=== PATIENT | male | born 1975 | race American Indian/Alaskan Native ===

== ENCOUNTER 2020-09-24 01:07 | Inpatient (IN) | payer MEDICARE ==
[2020-09-24] MEDS ORDERED: ACETAMINOPHEN 325 MG TAB PO ONE (02:37)
--- NOTE | 2020-09-24 02:59 | XRay Report ---
CHEST 2 VIEWS INDICATION / CLINICAL INFORMATION: cough. COMPARISON: None available. FINDINGS: SUPPORT DEVICES: None. HEART / MEDIASTINUM: No significant abnormality. LUNGS / PLEURA: There is mild bilateral interstitial prominence. No focal pulmonary consolidation. No pleural effusion. No pneumothorax. ADDITIONAL FINDINGS: No significant additional findings. IMPRESSION: 1. Mild bilateral interstitial prominence, nonspecific but may reflect edema versus atypical infectio n. Signer Name: Kirti Boone MD Signed: 09/24/2020 2:55 AM Workstation Name: [email or web address]
[2020-09-24 03:27] LABS: Basophils % (Auto) 0.3 % (0.0-1.8); Eosinophils % (Auto) 0.1 % (0.0-4.3); Lymphocytes % (Auto) 14.7 % (13.4-35.0); Mean Corpuscular HGB Conc 36 % (32-34); Mean Corpuscular Volume 95 fl (84-94); Monocytes # (Auto) 0.7 K/mm3 (0.0-0.8); Monocytes % (Auto) 9.7 % (0.0-7.3); Platelet Count 179 K/mm3 (140-440); Red Blood Count 3.78 M/mm3 (3.65-5.03)
[2020-09-24] MEDS ORDERED: ACETAMINOPHEN 500 MG TAB PO ONE (03:40)
[2020-09-24] MEDS ORDERED: cefTRIAXone/NS 1 GM/50 ML 1 GM/50 ML BAG IV ONE (03:40)
[2020-09-24] MEDS ORDERED: SODIUM CHLORIDE 0.9% 1000 ML 1,000 ML IV ONE ×2 (03:40→06:09)
[2020-09-24 03:45] LABS: BUN/Creatinine Ratio 11; Blood Urea Nitrogen 12 mg/dL (9-20); Calcium 9.3 mg/dL (8.4-10.2); Hematocrit 35.9 % (35.5-45.6); Hemolysis Index 4
--- NOTE | 2020-09-24 05:11 | Emergency Department Report ---
ED General Adult HPI - General Chief complaint: Fever Stated complaint: COUGH Time Seen by Provider: 09/24/20 03:34 Source: patient Mode of arrival: Ambulatory Limitations: No Limitations - History of Present Illness Initial comments: Patient is a 45-year-old male who presents for cough and fever x6 days. Patient states he was inpatient at [facility] for alcohol rehab. States he had spiked fever today so he was sent to ED by nursing staff at [facility]. Patient denies shortness of breath no, no chest pain, no dizziness or lightheadedness. He describes co ugh as nonproductive. T-max is 102. Patient denies activity intolerance he is tolerating p.o. intake without nausea vomiting. Severity scale (0 -10): 3 - Related Data Allergies Allergy/AdvReac Type Severity Reaction Status Date / Time No Known Allergies Allergy Unverified 09/24/20 02:25 ED Review of Systems ROS: Stated complaint: COUGH Other details as noted in HPI Constitutional: malaise. denies: chills, fever Eyes: denies: eye pain, eye discharge, vision change ENT: hearing loss, congestion. denies: ear pain, throat pain Respiratory: denies: cough, shortness of breath, wheezing Cardiovascular: denies: chest pain, palpitations Endocrine: no symptoms reported Gastrointestinal: denies: abdominal pain, nausea, vomiting, diarrhea Genitourinary: denies: urgency, dysuria Musculoskeletal: denies: back pain, joint swelling, arthralgia Skin: denies: rash, lesions Neurological: denies: headache, weakness, paresthesias Psychiatric: denies: anxiety, depression Hematological/Lymphatic: denies: easy bleeding, easy bruising ED Past Medical Hx - Past Medical History Previous Medical History?: No Hx Psychiatric Treatment: Yes (Depression, Anxiety) - Surgical History Past Surgical History?: No - Social History Smoking Status: Current Every Day Smoker Substance Use Type: None ED Physical Exam - General Limitations: No Limitations General appearance: alert, in no apparent distress - Head Head exam: Present: atraumatic, normocephalic - Eye Eye exam: Present: normal appearance, EOMI - ENT ENT exam: Present: mucous membranes moist - Neck Neck exam: Present: normal inspection - Respiratory Respiratory exam: Present: normal lung sounds bilaterally, chest wall tenderness (Right anterior chest wall tender no crepit no ecchymosis , no seeeeeeeeeeeeeeeeeeeep). Absent: respiratory distress, wheezes, rales, stridor, prolonged expiratory - Cardiovascular Cardiovascular Exam: Present: regular rate, normal heart sounds - GI/Abdominal GI/Abdominal exam: Present: soft, normal bowel sounds. Absent: distended, tenderness, rigid, bruit, pulsatile mass - Rectal Rectal exam: Present: normal inspection - exam: Present: normal inspection - Extremities Exam Extremities exam: Present: normal inspection, full ROM. Absent: tenderness - Back Exam Back exam: Present: normal inspection, full ROM, muscle spasm. Absent: tenderness, CVA tenderness (R), CVA tenderness (L), vertebral tenderness - Neurological Exam Neurological exam: Present: alert, oriented X3, CN II-XII intact. Absent: normal gait - Psychiatric Psychiatric exam: Present: normal affect, normal mood - Skin Skin exam: Present: dry, intact, normal color, erythema (pilonidal abscess 2x3 cm , flucuant, erythema,no drainage, ) ED Course Vital Signs 09/24/20 02:26 Temperature 102.1 F H Pulse Rate 95 H Respiratory 18 Rate Blood Pressure 127/64 O2 Sat by Pulse 96 Oximetry ED Medical Decision Making - Lab Data Result diagrams: 09/24/20 02:40 09/24/20 06:10 Labs 09/24/20 09/24/20 09/24/20 02:40 02:40 03:54 WBC 6.8 RBC 3.78 Hgb 13.0 Hct 35.9 MCV 95 H MCH 34 H MCHC 36 H RDW 13.0 L Plt Count 179 Lymph % (Auto) 14.7 [place] % (Auto) 9.7 H Eos % (Auto) 0.1 Baso % (Auto) 0.3 Lymph # (Auto) 1.0 L [place] # (Auto) 0.7 Eos # (Auto) 0.0 Baso # (Auto) 0.0 Seg Neutrophils % 75.2 H Seg Neutrophils # 5.1 PT INR APTT D-Dimer Sodium 138 Potassium 4.2 Chloride 99.6 Carbon Dioxide 26 Anion Gap 17 BUN 12 Creatinine 1.1 Estimated GFR > 60 BUN/Creatinine Ratio 11 Glucose 102 H Lactic Acid 1.70 Calcium 9.3 09/24/20 03:54 WBC RBC Hgb Hct MCV MCH MCHC RDW Plt Count Lymph % (Auto) [place] % (Auto) Eos % (Auto) Baso % (Auto) Lymph # (Auto) [place] # (Auto) Eos # (Auto) Baso # (Auto) Seg Neutrophils % Seg Neutrophils # PT 13.7 INR 1.07 APTT 31.4 D-Dimer 271.86 H Sodium Potassium Chloride Carbon Dioxide Anion Gap BUN Creatinine Estimated GFR BUN/Creatinine Ratio Glucose Lactic Acid Calcium Labs 09/24/20 09/24/20 09/24/20 02:40 02:40 03:54 WBC 6.8 RBC 3.78 Hgb 13.0 Hct 35.9 MCV 95 H MCH 34 H MCHC 36 H RDW 13.0 L Plt Count 179 Lymph % (Auto) 14.7 [place] % (Auto) 9.7 H Eos % (Auto) 0.1 Baso % (Auto) 0.3 Lymph # (Auto) 1.0 L [place] # (Auto) 0.7 Eos # (Auto) 0.0 Baso # (Auto) 0.0 Seg Neutrophils % 75.2 H Seg Neutrophils # 5.1 PT INR APTT D-Dimer Sodium 138 Potassium 4.2 Chloride 99.6 Carbon Dioxide 26 Anion Gap 17 BUN 12 Creatinine 1.1 Estimated GFR > 60 BUN/Creatinine Ratio 11 Glucose 102 H Lactic Acid 1.70 Calcium 9.3 Ferritin Total Bilirubin Direct Bilirubin Indirect Bilirubin AST ALT Alkaline Phosphatase Lactate Dehydrogenase C-Reactive Protein Total Protein Albumin Albumin/Globulin Ratio 09/24/20 09/24/20 09/24/20 03:54 03:54 06:10 WBC RBC Hgb Hct MCV MCH MCHC RDW Plt Count Lymph % (Auto) [place] % (Auto) Eos % (Auto) Baso % (Auto) Lymph # (Auto) [place] # (Auto) Eos # (Auto) Baso # (Auto) Seg Neutrophils % Seg Neutrophils # PT 13.7 INR 1.07 APTT 31.4 D-Dimer 271.86 H 490.64 H Sodium Potassium Chloride Carbon Dioxide Anion Gap BUN Creatinine Estimated GFR BUN/Creatinine Ratio Glucose Lactic Acid Calcium Ferritin Total Bilirubin 0.40 Direct Bilirubin < 0.2 Indirect Bilirubin 0.2 AST 32 ALT 26 Alkaline Phosphatase 50 Lactate Dehydrogenase C-Reactive Protein Total Protein 6.9 Albumin 3.7 L Albumin/Globulin Ratio 1.2 09/24/20 09/24/20 06:10 06:10 WBC RBC Hgb Hct MCV MCH MCHC RDW Plt Count Lymph % (Auto) [place] % (Auto) Eos % (Auto) Baso % (Auto) Lymph # (Auto) [place] # (Auto) Eos # (Auto) Baso # (Auto) Seg Neutrophils % Seg Neutrophils # PT INR APTT D-Dimer Sodium Potassium Chloride Carbon Dioxide Anion Gap BUN Creatinine Estimated GFR BUN/Creatinine Ratio Glucose 111 H Lactic Acid Calcium Ferritin 565.5 H Total Bilirubin Direct Bilirubin Indirect Bilirubin AST ALT Alkaline Phosphatase Lactate Dehydrogenase 366 H C-Reactive Protein 4.10 H Total Protein Albumin Albumin/Globulin Ratio - Radiology Data Radiology results: report reviewed, image reviewed Findings Reporting MD: Kirti Boone Dictation Time: September 24, 2020 01:55 Beating Machine Operator: Not available Group President Date: CHEST 2 VIEWS INDICATION / CLINICAL INFORMATION: cough. COMPARISON: None available. FINDINGS: SUPPORT DEVICES: None. HEART / MEDIASTINUM: No significant abnormality. LUNGS / PLEURA: There is mild bilateral interstitial prominence. No focal pulmonary consolidation. No pleural effusion. No pneumothorax. ADDITIONAL FINDINGS: No significant additional findings. IMPRESSION: 1.Findings Reporting MD: Kirti Boone Dictation Time: September 24, 2020 01:55 Beating Machine Operator: Not available Group President Date: CHEST 2 VIEWS INDICATION / CLINICAL INFORMATION: cough. COMPARISON: None available. FINDINGS: SUPPORT DEVICES: None. HEART / MEDIASTINUM: No significant abnormality. LUNGS / PLEURA: There is mild bilateral interstitial prominence. No focal pulmonary consolidation. No pleural effusion. No pneumothorax. ADDITIONAL FINDINGS: No significant additional findings. IMPRESSION: 1. Mild bilateral interstitial prominence, nonspecific but may reflect edema versus atypical infection. Signer Name: Kirti Boone MD Signed: 09/24/2020 1:55 AM Workstation Name: [email or web address] Signer Name: Kirti Boone MD Signed: 09/24/2020 1:55 AM Workstation Name: [email or web address] - Medical Decision Making [id number]: Cxr: Mild bilateral interstitial prominence, nonspecific but may reflect edema versus atypical infection. lactic Acid; 1.7, temp: 102.7, D Dimer 271, CTA pending, COVID PCR: pending, Symptoms are improved with medications given in ed, Consulted ED Attending recommendation: Admit to Hospitalist Dx: PUI / COVID 19 Exposure, Discussed same with patient , patient agrees with treatment plan. Hospitalist consulted at this time. CTA: pending D-Dimer: 450 EKG: NSR No STEMI interp by ed attending. Plan: Admit to hospitalist DX: PUI, Pneumonia bilat Lobe, COVID Exposure, Consulted Hospitalist, recommendation Rocephin, azithromycin, admit to medicine. Critical care attestation.: If time is entered above; I have spent that time in minutes in the direct care of this critically ill patient, excluding procedure time. ED Disposition Clinical Impression: Fever with exposure to COVID-19 virus, Person under investigation for COVID-19 Pneumonia Qualifiers: Pneumonia type: due to unspecified organism Laterality: bilateral Lung location: lower lobe of lung Qualified Code(s): J18.9 - Pneumonia, unspecified organism Disposition: OP ADMIT IP TO THIS HOSP Is pt being admited?: Yes Does the pt Need Aspirin: No Condition: Stable Instructions: Bacterial Pneumonia (ED) Time of Disposition: 06:58
[2020-09-24 05:13] LABS: INR 1.07 (0.87-1.13)
[2020-09-24 05:14] LABS: Partial Thromboplastin Time 31.4 Sec. (24.2-36.6)
[2020-09-24 05:22] LABS: Alanine Aminotransferase 26 units/L (7-56); Albumin 3.7 g/dL (3.9-5)
[2020-09-24 05:26] LABS: Bilirubin,Direct < 0.2 mg/dL (0-0.2)
[2020-09-24 06:33] LABS: C-Reactive Protein 4.1 mg/dL (0.00-1.30)
--- NOTE | 2020-09-24 06:49 | Cat Scan Report ---
CTA CHEST WITH IV CONTRAST INDICATION / CLINICAL INFORMATION: Pt complains of cough, fever. Elevated D-dimer. PUI. TECHNIQUE: Axial CT images were obtained through the chest after injection of 100 mL Omnipaque 350 IV contrast. 3 plane MIP and/or 3D reconstructions were produced. All CT scans at this location are performed usin g CT dose reduction for ALARA by means of automated exposure control. COMPARISON: Chest radiograph same day FINDINGS: PULMONARY ARTERIES: No pulmonary emboli. THORACIC AORTA: No significant abnormality. HEART: No significant abnormality. CORONARY ARTERIES: No significant calcification. PLEURA: No pleural effusion. No pneumothorax. LYMPH NODES: Multiple mildly prominent mediastinal lymph nodes, nonspecific and likely reactive. LUNGS: There are bilateral peripheral groundglass opacities seen throughout both lungs. ADDITIONAL FINDINGS: None. UPPER ABDOMEN: No acute findings. SKELETAL STRUCTURES: No significant osseous abnormality. IMPRESSION: 1. No CT evidence for pulmonary embolism. 2. Bilateral peripheral groundglass opacities seen throughout both lungs, worrisome for atypical or v iral infection. Signer Name: Kirti Boone MD Signed: 09/24/2020 6:44 AM Workstation Name: [id number]
[2020-09-24] MEDS ORDERED: SODIUM CHLORIDE 0.9% 1000 ML 1,000 ML IV SCH (07:00)
--- NOTE | 2020-09-24 08:01 | History and Physical Report ---
<TARI JADE - Last Filed: 09/24/20 11:54> History of Present Illness Date of examination: 09/24/20 Chief complaint: Cough, shortness of breath, fever History of present illness: This is a 45-year-old male who has depression, anxiety, bipolar, tobacco abuse (half a pack per day since he was a teenager) who presented to the emergency department with a 5-8 day history of shortness of breath, dyspnea and dry cough, loss of taste/smell for 3 days (patient has recovered) and one episode of fever (100.5). Patient is from [facility] and he says he was admitted for depression however he told the emergency department physician that he was admitted for alcohol rehab. Patient denies any alcohol use at the time of examination. Patient denies any chest pain, chills, hemoptysis, excessive fatigue, or recent weight loss. Patient does endorse a dry cough, fever, recent sick contacts and COVID-19 exposure from care home. In the emergency department patient was started on a azithromycin, ceftriaxone, received 2 L IV fluid, chest CTA for elevated D-dimer which revealed no pulmonary embolism and a chest x-ray which showed mild bilateral interstitial prominence measuring reflect edema or atypical infection. His inflammatory markers are elevated however he is procalcitonin is less than 0.05. Patient will be admitted to the hospitalist group as a COVID-19 PUI, infectious disease, pulmonology and mental health have been consulted. No home medications to rec oncile however RN instructed to update as soon as possible, advanced care planning conducted in the emergency department and no prior visits to review. Patient denies any suicidal homicidal ideations at the time of my exam. Past History Past Medical History: other (Bipolar, anxiety, depression) Past Surgical History: No surgical history Social history: , Lives alone, smoking, full code. denies: alcohol abuse, prescription drug abuse, IV drug use Family history: CAD, diabetes Medications and Allergies Allergies Allergy/AdvReac Type Severity Reaction Status Date / Time No Known Allergies Allergy Unverified 09/24/20 02:25 Home Medications Medication Instructions Recorded Confirmed Last Taken Type No Known Home Medications [No 09/24/20 09/24/20 Unknown History Reported Home Medications] Active Meds: Active Medications Acetaminophen (Acetaminophen 325 Mg Tab) 650 mg PO Q4H PRN PRN Reason: Pain MILD(1-3)/Fever >100.5/[facility] Heparin Sodium (Porcine) (Heparin 5,000 Unit/1 Ml Vial) 7,500 unit SUB-Q Q8HR [facility] Sodium Chloride (Nacl 0.9% 1000 Ml) 1,000 mls @ 125 mls/hr IV ONCE ONE Stop: 09/24/20 14:08 Last Admin: 09/24/20 06:35 Dose: 125 mls/hr Documented by: Azithromycin 500 mg/ Sodium (Chloride) 250 mls @ 250 mls/hr IV Q24HR [facility]EN[facility]; Ingrid col Lorazepam (Lorazepam 2 Mg Tab) 2 mg PO Q1HR PRN PRN Reason: CIWA-Ar 8-15 Lorazepam (Lorazepam 2 Mg Tab) 4 mg PO Q1HR PRN PRN Reason: CIWA-Ar 16-25 Ondansetron HCl (Ondansetron 4 Mg/2 Ml Inj) 4 mg IV Q8H PRN PRN Reason: Nausea And Vomiting Oxycodone/Acetaminophen (Oxycodone /Acetaminophen 5-325mg Tab) 1 tab PO Q6H PRN PRN Reason: Pain, Moderate (4-6) Sodium Chloride (Sodium Chloride 0.9% 10 Ml Flush Syringe) 10 ml IV BID [facility] Sodium Chloride (Sodium Chloride 0.9% 10 Ml Flush Syringe) 10 ml IV PRN PRN PRN Reason: LINE FLUSH Review of Systems Constitutional: fever, no weight loss, no weight gain, no chills, no sweats, no night sweats, no anorexia, no fatigue, no weakness, no malaise, no lethargy, no chronic headaches, no chronic pain Ears, nose, mouth and throat: no ear pain, no ear discharge, no tinnitis, no d ecreased hearing, no nose pain, no nasal congestion, no nasal discharge, no sinus pressure, no sinus pain, no epistaxis, no bleeding gums, no dental pain, no mouth pain, no dysphagia, no hoarseness, no sore throat, no post-nasal drip Cardiovascular: shortness of breath, dyspnea on exertion, phlebitis, no chest pain, no orthopnea, no palpitations, no rapid/irregular heart beat, no edema, no syncope, no lightheadedness, no paroxysmal nocturnal dyspnea, no high blood pressure, no leg edema Respiratory: cough, shortness of breath, dyspnea on exertion, no cough with sputum, no excessive sputum, no hemoptysis, no congestion, no wheezing, no pleurisy, no pain on inspiration, no sleep apnea, no home oxygen Gastrointestinal: no abdominal pain, no nausea, no vomiting, no diarrhea, no constipation, no change in bowel habits, no BRBPR, no melena, no hematochezia, no heartburn Genitourinary Male: no dysuria, no hematuria, no flank pain, no discharge, no urinary frequency, no urinary hesitancy, no nocturia, no incontinence Rectal: no pain, no incontinence, no bleeding, no hemorrhoids Musculoskeletal: no neck stiffness, no neck pain, no shooting arm pain, no arm numbness/tingling, no low back pain, no shooting leg pain, no leg numbness/tingling, no redness of joints, no frequent falls, no fractures Integumentary: no rash, no pruritis, no redness, no sores, no wounds, no jaundice, no boils, no growths, no bullae, no lesions, no darkening of skin, no depigmentation, no acne, no dryness Neurological: sensory deficit, hearing difficulties, no head injury, no transient paralysis, no paralysis, no weakness, no parathesias, no numbness, no tingling, no seizures, no syncope, no tremors, no ataxia, no lack of coordination, no vertigo, no headaches, no migraines, no convulsions, no double vision, no loss of vision Psychiatric: anxiety, depression, other (Bipolar), no suicidal ideation, no hopelessness, no anxiety attacks, no difficulties concentrating, no sadness/te arfullness Endocrine: no cold intolerance, no heat intolerance, no polyphagia, no excessive thirst, no polydipsia, no polyuria, no nocturia, no flushing, no weight change, no increase in ring/shoe/hat size, no palpatations Hematologic/Lymphatic: no easy bruising, no easy bleeding, no lymphadenopathy Allergic/Immunologic: no urticaria, no persistent infections Exam - Constitutional Vitals: Temp Pulse Resp BP Pulse Ox 98.6 F 77 17 100/60 96 09/24/20 07:05 09/24/20 07:05 09/24/20 07:05 09/24/20 07:05 09/24/20 07:05 General appearance: Present: no acute distress - EENT Eyes: Present: PERRL, EOM intact ENT: hearing intact - Neck Neck: Present: supple - Respiratory Respiratory effort: normal Respiratory: bilateral: diminished, wheezing - Cardiovascular Rhythm: regular Heart Sounds: Present: S1 & S2. Absent: systolic murmur, diastolic murmur - Extremities Extremities: no ischemia, pulses intact, pulses symmetrical, No edema, normal temperature, normal color, Full ROM Peripheral Pulses: within normal limits - Abdominal General gastrointestinal: Present: soft, non-tender, non-distended, normal bowel sounds - Integumentary Integumentary: Present: clear, warm, dry - Musculoskeletal Musculoskeletal: strength equal bilaterally - Psychiatric Psychiatric: appropriate mood/affect, cooperative - Neurologic Neurologic: CNII-XII intact, no focal deficits, moves all extremities - Allied Health Allied health notes reviewed: nursing Results - Labs CBC & Chem 7: 09/24/20 02:40 09/24/20 06:10 Labs: Laboratory Last Values WBC 6.8 K/mm3 (4.5-11.0) 09/24/20 02:40 RBC 3.78 M/mm3 (3.65-5.03) 09/24/20 02:40 Hgb 13.0 gm/dl (11.8-15.2) 09/24/20 02:40 Hct 35.9 % (35.5-45.6) 09/24/20 02:40 MCV 95 fl (84-94) H 09/24/20 02:40 MCH 34 pg (28-32) H 09/24/20 02:40 MCHC 36 % (32-34) H 09/24/20 02:40 RDW 13.0 % (13.2-15.2) L 09/24/20 02:40 Plt Count 179 K/mm3 (140-440) 09/24/20 02:40 Lymph % (Auto) 14.7 % (13.4-35.0) 09/24/20 02:40 [place] % (Auto) 9.7 % (0.0-7.3) H 09/24/20 02:40 Eos % (Auto) 0.1 % (0.0-4.3) 09/24/20 02:40 Baso % (Auto) 0.3 % (0.0-1.8) 09/24/20 02:40 Lymph # (Auto) 1.0 K/mm3 (1.2-5.4) L 09/24/20 02:40 [place] # (Auto) 0.7 K/mm3 (0.0-0.8) 09/24/20 02:40 Eos # (Auto) 0.0 K/mm3 (0.0-0.4) 09/24/20 02:40 Baso # (Auto) 0.0 K/mm3 (0.0-0.1) 09/24/20 02:40 Seg Neutrophils % 75.2 % (40.0-70.0) H 09/24/20 02:40 Seg Neutrophils # 5.1 K/mm3 (1.8-7.7) 09/24/20 02:40 PT 13.7 Sec. (12.2-14.9) 09/24/20 03:54 INR 1.07 (0.87-1.13) 09/24/20 03:54 APTT 31.4 Sec. (24.2-36.6) 09/24/20 03:54 D-Dimer 490.64 ng/mlDDU (0-234) H 09/24/20 06:10 Sodium 138 mmol/L (137-145) 09/24/20 02:40 Potassium 4.2 mmol/L (3.6-5.0) 09/24/20 02:40 Chloride 99.6 mmol/L (98-107) 09/24/20 02:40 Carbon Dioxide 26 mmol/L (22-30) 09/24/20 02:40 Anion Gap 17 mmol/L 09/24/20 02:40 BUN 12 mg/dL (9-20) 09/24/20 02:40 Creatinine 1.1 mg/dL (0.8-1.3) 09/24/20 02:40 Estimated GFR > 60 ml/min 09/24/20 02:40 BUN/Creatinine Ratio 11 % 09/24/20 02:40 Glucose 111 mg/dL (75-100) H 09/24/20 06:10 Lactic Acid 1.70 mmol/L (0.7-2.0) 09/24/20 03:54 Calcium 9.3 mg/dL (8.4-10.2) 09/24/20 02:40 Ferritin 565.5 ng/mL (30.0-300.0) H 09/24/20 06:10 Total Bilirubin 0.40 mg/dL (0.1-1.2) 09/24/20 03:54 Direct Bilirubin < 0.2 mg/dL (0-0.2) 09/24/20 03:54 Indirect Bilirubin 0.2 mg/dL 09/24/20 03:54 AST 32 units/L (5-40) 09/24/20 03:54 ALT 26 units/L (7-56) 09/24/20 03:54 Alkaline Phosphatase 50 units/L (35-129) 09/24/20 03:54 Lactate Dehydrogenase 366 units/L (91-180) H 09/24/20 06:10 C-Reactive Protein 4.10 mg/dL (0.00-1.30) H 09/24/20 06:10 Total Protein 6.9 g/dL (6.3-8.2) 09/24/20 03:54 Albumin 3.7 g/dL (3.9-5) L 09/24/20 03:54 Albumin/Globulin Ratio 1.2 % 09/24/20 03:54 Microbiology: Microbiology 09/24/20 03:54 Peripheral/Venous Blood Culture - Preliminary Culture in Progress 09/24/20 04:28 Peripheral/Venous Blood Culture - Preliminary Culture in Progress - Imaging and Cardiology Chest x-ray: image reviewed CT scan - chest: image reviewed - Diagnostic Impressions Diagnostic Impressions: 09/24 CXR shows mild bilateral interstitial prominence, nonspecific but may reflect edema versus atypical infection. 09/24 CTA chst shows no CT evidence for pulmonary embolism, bilateral peripheral groundglass opacities seen throughout both lungs, worrisome for atypical or viral infection. Assessment and Plan - Patient Problems (1) Person under investigation for COVID-19 Current Visit: Yes Status: Acute Plan to address problem: Patient presented with self-reported cough and fever 09/24 CXR shows mild bilateral interstitial prominence, nonspecific but may reflect edema versus atypical infection. 09/24 CTA chest shows no CT evidence for pulmonary embolism, bilateral peripheral groundglass opacities seen throughout both lungs, worrisome for atypical or viral infection. 09/24 Covid PCR pending Trend inflammatory markers Supplemental oxygen as needed Pulmonary hygiene Antibiotic therapy Infectious disease consulted, appreciate recommendations Pulmonology consulted, appreciate recommendations OOB 3 times daily Prone to sleep as needed 09/24 vitamin C, vitamin D, zinc started Contact/droplet isolation Continuous SPO2 monitoring (2) Pneumonia Current Visit: Yes Status: Acute Qualifiers: Pneumonia type: due to unspecified organism Laterality: bilateral Lung location: lower lobe of lung Qualified Code(s): J18.9 - Pneumonia, unspecified organism Plan to address problem: 09/24 CXR shows mild bilateral interstitial prominence, nonspecific but may reflect edema versus atypical infection. 09/24 CTA chest shows no CT evidence for pulmonary embolism, bilateral peripheral groundglass opacities seen throughout both lungs, worrisome for atypical or viral infection. Antibiotic therapy Supplemental oxygen as needed Pulmonary hygiene Pulmonology and ID consult for COVID-19 PUI, appreciate recommendations (3) Febrile Current Visit: Yes Status: Acute Plan to address problem: Patient on presentation was febrile to 102 Antipyretics Supportive care (4) Elevated d-dimer Current Visit: Yes Status: Acute Plan to address problem: 09/24 D-dimer 271, 490 09/24 CTA chest shows no CT evidence for pulmonary embolism, bilateral peripheral groundglass opacities seen throughout both lungs, worrisome for atypical or viral infection. Anticoagulation per COVID-19 protocol (5) Depression Current Visit: Yes Status: Chronic Plan to address problem: Restart home medications when available Support care Sleep hygiene Psych consult, appreciate recommendations (6) Tobacco abuse Current Visit: Yes Status: Chronic Plan to address problem: Tobacco cessation counseling (7) Alcohol abuse Current Visit: Yes Status: Chronic Plan to address problem: CIWA protocol Started vitamin B, folate, thiamine Reorientation as needed Seizure precautions Patient denies alcohol abuse however he told the ED physician that he was at [facility] for alcohol detox (8) Anxiety Current Visit: Yes Status: Chronic Plan to address problem: Restart home medications once obtained As needed Ativan p.o. per CIWA scale Supportive care Psych consult, patient recommendations (9) DVT prophylaxis Current Visit: Yes Status: Acute Plan to address problem: SCDs to bilateral extremities while in bed Heparin subcu (anticoagulation per COVID-19 protocol) (10) Full code status Current Visit: Yes Status: Acute <MIGUELITO OTT - Last Filed: 09/24/20 17:56> History of Present Illness Date of admission: 09/24/20 07:44 Medications and Allergies Active Meds: Active Medications Acetaminophen (Acetaminophen 325 Mg Tab) 650 mg PO Q4H PRN PRN Reason: Pain MILD(1-3)/Fever >100.5/[facility] Ascorbic Acid (Ascorbic Acid 500 Mg Tab) 500 mg PO QDAY [facility] Last Admin: 09/24/20 10:25 Dose: 500 mg Documented by: Cholecalciferol (Cholecalciferol (Vit D3) 5,000 Unit Tab) 5,000 unit PO DAILY [facility] Last Admin: 09/24/20 10:26 Dose: 5,000 unit Documented by: Folic Acid (Folic Acid 1 Mg Tab) 1 mg PO QDAY [facility] Last Admin: 09/24/20 10:26 Dose: 1 mg Documented by: Heparin Sodium (Porcine) (Heparin 5,000 Unit/1 Ml Vial) 7,500 unit SUB-Q Q8HR [facility] Last Admin: 09/24/20 16:46 Dose: Not Given Documented by: Lorazepam (Lorazepam 2 Mg Tab) 2 mg PO Q1HR PRN PRN Reason: CIWA-Ar 8-15 Ondansetron HCl (Ondansetron 4 Mg/2 Ml Inj) 4 mg IV Q8H PRN PRN Reason: Nausea And Vomiting Oxycodone/Acetaminophen (Oxycodone /Acetaminophen 5-325mg Tab) 1 tab PO Q6H PRN PRN Reason: Pain, Moderate (4-6) Sodium Chloride (Sodium Chloride 0.9% 10 Ml Flush Syringe) 10 ml IV BID [facility] Sodium Chloride (Sodium Chloride 0.9% 10 Ml Flush Syringe) 10 ml IV PRN PRN PRN Reason: LINE FLUSH Zinc Sulfate (Zinc Sulfate 220 Mg Cap) 220 mg PO QDAY [facility] Last Admin: 09/24/20 10:25 Dose: 220 mg Documented by: Exam - Constitutional Vitals: Temp Pulse Resp BP Pulse Ox 98.6 F 77 17 100/60 96 09/24/20 07:05 09/24/20 07:05 09/24/20 07:05 09/24/20 07:05 09/24/20 07:05 Results - Labs CBC & Chem 7: 09/24/20 02:40 09/24/20 06:10 Labs: Laboratory Last Values WBC 6.8 K/mm3 (4.5-11.0) 09/24/20 02:40 RBC 3.78 M/mm3 (3.65-5.03) 09/24/20 02:40 Hgb 13.0 gm/dl (11.8-15.2) 09/24/20 02:40 Hct 35.9 % (35.5-45.6) 09/24/20 02:40 MCV 95 fl (84-94) H 09/24/20 02:40 MCH 34 pg (28-32) H 09/24/20 02:40 MCHC 36 % (32-34) H 09/24/20 02:40 RDW 13.0 % (13.2-15.2) L 09/24/20 02:40 Plt Count 179 K/mm3 (140-440) 09/24/20 02:40 Lymph % (Auto) 14.7 % (13.4-35.0) 09/24/20 02:40 [place] % (Auto) 9.7 % (0.0-7.3) H 09/24/20 02:40 Eos % (Auto) 0.1 % (0.0-4.3) 09/24/20 02:40 Baso % (Auto) 0.3 % (0.0-1.8) 09/24/20 02:40 Lymph # (Auto) 1.0 K/mm3 (1.2-5.4) L 09/24/20 02:40 [place] # (Auto) 0.7 K/mm3 (0.0-0.8) 09/24/20 02:40 Eos # (Auto) 0.0 K/mm3 (0.0-0.4) 09/24/20 02:40 Baso # (Auto) 0.0 K/mm3 (0.0-0.1) 09/24/20 02:40 Seg Neutrophils % 75.2 % (40.0-70.0) H 09/24/20 02:40 Seg Neutrophils # 5.1 K/mm3 (1.8-7.7) 09/24/20 02:40 PT 13.7 Sec. (12.2-14.9) 09/24/20 03:54 INR 1.07 (0.87-1.13) 09/24/20 03:54 APTT 31.4 Sec. (24.2-36.6) 09/24/20 03:54 D-Dimer 490.64 ng/mlDDU (0-234) H 09/24/20 06:10 Sodium 138 mmol/L (137-145) 09/24/20 02:40 Potassium 4.2 mmol/L (3.6-5.0) 09/24/20 02:40 Chloride 99.6 mmol/L (98-107) 09/24/20 02:40 Carbon Dioxide 26 mmol/L (22-30) 09/24/20 02:40 Anion Gap 17 mmol/L 09/24/20 02:40 BUN 12 mg/dL (9-20) 09/24/20 02:40 Creatinine 1.1 mg/dL (0.8-1.3) 09/24/20 02:40 Estimated GFR > 60 ml/min 09/24/20 02:40 BUN/Creatinine Ratio 11 % 09/24/20 02:40 Glucose 111 mg/dL (75-100) H 09/24/20 06:10 Lactic Acid 1.70 mmol/L (0.7-2.0) 09/24/20 03:54 Calcium 9.3 mg/dL (8.4-10.2) 09/24/20 02:40 Phosphorus 3.00 mg/dL (2.5-4.5) 09/24/20 08:26 Magnesium 1.90 mg/dL (1.7-2.3) 09/24/20 08:26 Ferritin 482.2 ng/mL (30.0-300.0) H 09/24/20 08:26 Total Bilirubin 0.40 mg/dL (0.1-1.2) 09/24/20 03:54 Direct Bilirubin < 0.2 mg/dL (0-0.2) 09/24/20 03:54 Indirect Bilirubin 0.2 mg/dL 09/24/20 03:54 AST 32 units/L (5-40) 09/24/20 03:54 ALT 26 units/L (7-56) 09/24/20 03:54 Alkaline Phosphatase 50 units/L (35-129) 09/24/20 03:54 Lactate Dehydrogenase 330 units/L (91-180) H 09/24/20 08:26 C-Reactive Protein 3.80 mg/dL (0.00-1.30) H 09/24/20 08:26 Total Protein 6.9 g/dL (6.3-8.2) 09/24/20 03:54 Albumin 3.7 g/dL (3.9-5) L 09/24/20 03:54 Albumin/Globulin Ratio 1.2 % 09/24/20 03:54 Procalcitonin < 0.05 ng/mL (<0.15) 09/24/20 06:10 Coronavirus (PCR) Positive (Negative) A 09/24/20 Unknown Microbiology: Microbiology 09/24/20 03:54 Peripheral/Venous Blood Culture - Preliminary Culture in Progress 09/24/20 04:28 Peripheral/Venous Blood Culture - Preliminary Culture in Progress Assessment and Plan Assessment and plan: I saw and evaluated the patient. I agree with the findings and the plan of care as documented in the Nurse Practitioner's~note, with the following corrections and additions.
[2020-09-24] MEDS ORDERED: ACETAMINOPHEN 325 MG TAB PO PRN (08:30)
[2020-09-24] MEDS ORDERED: THIAMINE 100 MG TAB PO SCH (09:00)
[2020-09-24] MEDS ORDERED: LORazepam 2 MG TAB PO PRN (09:00)
[2020-09-24] MEDS ORDERED: ONDANSETRON 4 MG/2 ML INJ IV PRN (09:00)
[2020-09-24 09:43] LABS: C-Reactive Protein 3.8 mg/dL (0.00-1.30)
[2020-09-24] MEDS ORDERED: AZITHROMYCIN 500 MG in SODIUM CHLORIDE 0.9% 250ML 250 ML IV SCH (10:00)
--- NOTE | 2020-09-24 10:19 | Consultation ---
History of Present Illness Consult date: 09/24/20 Requesting physician: MIGUELITO OTT Reason for consult: cough, abnormal CXR/CT History of present illness: 45 y/o male, who was admitted to [facility] for ETOH rehab sent to ED early am with fever and cough. CXR was abnormal so CT of chest done. Shows some lower lobe predominant peripheral infiltrates, very fine but unable to determine if GGO or not. Read as as GGO's. Concern is for COVID so patient is now a PUI and awaiting results of COVID tests. Patient is not examined in person to preserve PPE. Attempted to call nurse but no answer, in need of knowing how much O2 the patient is on. Remainder is negative. He does have elevated inflammatory markers. Past History Past Medical History: other (ETOH abuse) Past Surgical History: Other (unable to obtain) Social history: alcohol abuse, other Medications and Allergies Allergies Allergy/AdvReac Type Severity Reaction Status Date / Time No Known Allergies Allergy Unverified 09/24/20 02:25 Active Meds: Active Medications Acetaminophen (Acetaminophen 325 Mg Tab) 650 mg PO Q4H PRN PRN Reason: Pain MILD(1-3)/Fever >100.5/[place] Ascorbic Acid (Ascorbic Acid 500 Mg Tab) 500 mg PO QDAY [facility] Cholecalciferol (Cholecalciferol (Vit D3) 5,000 Unit Tab) 5,000 unit PO DAILY [facility] Folic Acid (Folic Acid 1 Mg Tab) 1 mg PO QDAY [facility] Heparin Sodium (Porcine) (Heparin 5,000 Unit/1 Ml Vial) 7,500 unit SUB-Q Q8HR [facility] Sodium Chloride (Nacl 0.9% 1000 Ml) 1,000 mls @ 125 mls/hr IV ONCE ONE Stop: 09/24/20 14:08 Last Admin: 09/24/20 06:35 Dose: 125 mls/hr Documented by: Azithromycin 500 mg/ Sodium (Chloride) 250 mls @ 250 mls/hr IV Q24HR [facility]; Protocol Lorazepam (Lorazepam 2 Mg Tab) 2 mg PO Q1HR PRN PRN Reason: CIWA-Ar 8-15 Lorazepam (Lorazepam 2 Mg Tab) 4 mg PO Q1HR PRN PRN Reason: CIWA-Ar 16-25 Ondansetron HCl (Ondansetron 4 Mg/2 Ml Inj) 4 mg IV Q8H PRN PRN Reason: Nausea And Vomiting Oxycodone/Acetaminophen (Oxycodone /Acetaminophen 5-325mg Tab) 1 tab PO Q6H PRN PRN Reason: Pain, Moderate (4-6) Sodium Chloride (Sodium Chloride 0.9% 10 Ml Flush Syringe) 10 ml IV BID [facility] Sodium Chloride (Sodium Chloride 0.9% 10 Ml Flush Syringe) 10 ml IV PRN PRN PRN Reason: LINE FLUSH Thiamine HCl (Thiamine 100 Mg Tab) 100 mg PO ONCE [facility] Stop: 09/24/20 11:00 Zinc Sulfate (Zinc Sulfate 220 Mg Cap) 220 mg PO QDAY [facility] Review of Systems All systems: negative Physical Examination Vital signs: Vital Signs Temp Pulse Resp BP Pulse Ox 102.1 F H 95 H 18 127/64 96 09/24/20 02:26 09/24/20 02:26 09/24/20 02:26 09/24/20 02:26 09/24/20 02:26 Patient not examined in person to preserve PPE during the global pandemic of COVID 19. Results - Laboratory Findings CBC and BMP: 09/24/20 02:40 09/24/20 06:10 PT/INR, D-dimer PT 13.7 Sec. (12.2-14.9) 09/24/20 03:54 INR 1.07 (0.87-1.13) 09/24/20 03:54 D-Dimer 490.64 ng/mlDDU (0-234) H 09/24/20 06:10 Abnormal lab findings: Abnormal Labs 09/24/20 09/24/20 09/24/20 02:40 02:40 03:54 MCV 95 H MCH 34 H MCHC 36 H RDW 13.0 L [place] % (Auto) 9.7 H Lymph # (Auto) 1.0 L Seg Neutrophils % 75.2 H D-Dimer 271.86 H Glucose 102 H Ferritin Lactate Dehydrogenase C-Reactive Protein Albumin 09/24/20 09/24/20 09/24/20 03:54 06:10 06:10 MCV MCH MCHC RDW [place] % (Auto) Lymph # (Auto) Seg Neutrophils % D-Dimer 490.64 H Glucose 111 H Ferritin Lactate Dehydrogenase 366 H C-Reactive Protein 4.10 H Albumin 3.7 L 12/11/20 12/11/20 12/11/20 06:10 08:26 08:26 MCV MCH MCHC RDW [place] % (Auto) Lymph # (Auto) Seg Neutrophils % D-Dimer Glucose Ferritin 565.5 H 482.2 H Lactate Dehydrogenase 330 H C-Reactive Protein 3.80 H Albumin - Diagnostic Findings Chest x-ray: image reviewed CT scan - chest: image reviewed Assessment and Plan 45 y/o male with abnormal CT, Fever and cough, concern for COVID 19 1. Agree with PUI protocol 2. Suggest going ahead and starting dexamethasone unless there is a contraindication 3. Will order proning to be done as tolerated during the day and sleep prone at night. Please document this in the nursing notes if being done or not. 4. Would suggest stopping IVF's unless patient is not taking adequate PO 5. Guarded prognosis.
[2020-09-24] MEDS: ZINC SULFATE 220 MG CAP PO SCH (10:25)
[2020-09-24] MEDS: ASCORBIC ACID 500 MG TAB PO SCH (10:25)
[2020-09-24] MEDS: CHOLECALCIFEROL (VIT D3) 5,000 UNIT TAB PO SCH (10:26)
[2020-09-24] MEDS: FOLIC ACID 1 MG TAB PO SCH (10:26)
--- NOTE | 2020-09-24 15:34 | Consultation ---
History of Present Illness - Reason for Consult Consult date: 09/24/20 Rule out COVID-19 Requesting physician: TARI JADE - History of Present Illness 45 years old male with history of depression, anxiety, bipolar disorder, tobacco abuse, admitted on 09/24/2020 secondary to 7-day history of cough, generalized malaise, dyspnea exertion, loss of taste and smell, fever. On arrival, temperature 102.1, HR 95, RR 18, O2 sat 96%, BP 127/64. Patient currently on room air. CTA shows no pulmonary embolism, bilateral groundglass opacity. D- dimer 490. Ferritin 564. Procalcitonin normal. Review of Systems: reviewed ED and H&P notes. Deferred to prevent COVID-19 transmission. Past History Past Medical History: other (Bipolar, anxiety, depression) Past Surgical History: No surgical history Social history: , Lives alone, smoking, full code. denies: alcohol abuse, prescription drug abuse, IV drug use Family history: CAD, diabetes Medications and Allergies Allergies Allergy/AdvReac Type Severity Reaction Status Date / Time No Known Allergies Allergy Unverified 09/24/20 02:25 Home Medications Medication Instructions Recorded Confirmed Last Taken Type No Known Home Medications [No 09/24/20 09/24/20 Unknown History Reported Home Medications] Active Meds: Active Medications Acetaminophen (Acetaminophen 325 Mg Tab) 650 mg PO Q4H PRN PRN Reason: Pain MILD(1-3)/Fever >100.5/[place] Ascorbic Acid (Ascorbic Acid 500 Mg Tab) 500 mg PO QDAY [facility] Last Admin: 09/24/20 10:25 Dose: 500 mg Documented by: Cholecalciferol (Cholecalciferol (Vit D3) 5,000 Unit Tab) 5,000 unit PO DAILY [facility] Last Admin: 09/24/20 10:26 Dose: 5,000 unit Documented by: Folic Acid (Folic Acid 1 Mg Tab) 1 mg PO QDAY [facility] Last Admin: 09/24/20 10:26 Dose: 1 mg Documented by: Heparin Sodium (Porcine) (Heparin 5,000 Unit/1 Ml Vial) 7,500 unit SUB-Q Q8HR KENDRA Azithromycin 500 mg/ Sodium (Chloride) 250 mls @ 250 mls/hr IV Q24HR KENDRA; Protocol Last Admin: 09/24/20 10:24 Dose: 250 mls/hr Documented by: Ceftriaxone Sodium (Rocephin/Ns 1 Gm/50 Ml) 1 gm in 50 mls @ 100 mls/hr IV Q24H KENDRA; Protocol Lorazepam (Lorazepam 2 Mg Tab) 2 mg PO Q1HR PRN PRN Reason: CIWA-Ar 8-15 Ondansetron HCl (Ondansetron 4 Mg/2 Ml Inj) 4 mg IV Q8H PRN PRN Reason: Nausea And Vomiting Oxycodone/Acetaminophen (Oxycodone /Acetaminophen 5-325mg Tab) 1 tab PO Q6H PRN PRN Reason: Pain, Moderate (4-6) Sodium Chloride (Sodium Chloride 0.9% 10 Ml Flush Syringe) 10 ml IV BID KENDRA Sodium Chloride (Sodium Chloride 0.9% 10 Ml Flush Syringe) 10 ml IV PRN PRN PRN Reason: LINE FLUSH Zinc Sulfate (Zinc Sulfate 220 Mg Cap) 220 mg PO QDAY KENDRA Last Admin: 09/24/20 10:25 Dose: 220 mg Documented by: Physical Examination - Physical Exam Narrative exam: Physical Exam: reviewed ED and hospitalist notes. Deferred to prevent COVID-19 transmission. - Constitutional Vitals: Vital Signs Temp Pulse Resp BP Pulse Ox 98.6 F 77 17 100/60 96 09/24/20 07:05 09/24/20 07:05 09/24/20 07:05 09/24/20 07:05 09/24/20 07:05 Temperature -Last 24 Hours Temperature 98.6 F Temperature 102.1 F Results - Labs CBC & Chem 7: 09/24/20 02:40 09/24/20 06:10 Labs: Abnormal lab results 09/24/20 09/24/20 09/24/20 Range/Units 02:40 02:40 03:54 MCV 95 H (84-94) fl MCH 34 H (28-32) pg MCHC 36 H (32-34) % RDW 13.0 L (13.2-15.2) % [place] % (Auto) 9.7 H (0.0-7.3) % Lymph # (Auto) 1.0 L (1.2-5.4) K/mm3 Seg Neutrophils % 75.2 H (40.0-70.0) % D-Dimer 271.86 H (0-234) ng/mlDDU Glucose 102 H (75-100) mg/dL Ferritin (30.0-300.0) ng/mL Lactate Dehydrogenase (91-180) units/L C-Reactive Protein (0.00-1.30) mg/dL Albumin (3.9-5) g/dL Coronavirus (PCR) (Negative) 09/24/20 09/24/20 09/24/20 Range/Units 03:54 06:10 06:10 MCV (84-94) fl MCH (28-32) pg MCHC (32-34) % RDW (13.2-15.2) % [place] % (Auto) (0.0-7.3) % Lymph # (Auto) (1.2-5.4) K/mm3 Seg Neutrophils % (40.0-70.0) % D-Dimer 490.64 H (0-234) ng/mlDDU Glucose 111 H (75-100) mg/dL Ferritin (30.0-300.0) ng/mL Lactate Dehydrogenase 366 H (91-180) units/L C-Reactive Protein 4.10 H (0.00-1.30) mg/dL Albumin 3.7 L (3.9-5) g/dL Coronavirus (PCR) (Negative) 09/24/20 09/24/20 09/24/20 Range/Units 06:10 08:26 08:26 MCV (84-94) fl MCH (28-32) pg MCHC (32-34) % RDW (13.2-15.2) % [place] % (Auto) (0.0-7.3) % Lymph # (Auto) (1.2-5.4) K/mm3 Seg Neutrophils % (40.0-70.0) % D-Dimer (0-234) ng/mlDDU Glucose (75-100) mg/dL Ferritin 565.5 H 482.2 H (30.0-300.0) ng/mL Lactate Dehydrogenase 330 H (91-180) units/L C-Reactive Protein 3.80 H (0.00-1.30) mg/dL Albumin (3.9-5) g/dL Coronavirus (PCR) (Negative) 09/24/20 Range/Units Unknown MCV (84-94) fl MCH (28-32) pg MCHC (32-34) % RDW (13.2-15.2) % [place] % (Auto) (0.0-7.3) % Lymph # (Auto) (1.2-5.4) K/mm3 Seg Neutrophils % (40.0-70.0) % D-Dimer (0-234) ng/mlDDU Glucose (75-100) mg/dL Ferritin (30.0-300.0) ng/mL Lactate Dehydrogenase (91-180) units/L C-Reactive Protein (0.00-1.30) mg/dL Albumin (3.9-5) g/dL Coronavirus (PCR) Positive A (Negative) Assessment and Plan Cultures: Blood culture pending SARS CoV2 PCR positive Assessment: 45 years old male with history of depression, anxiety, bipolar disorder, tobacco abuse, admitted on 09/24/2020 secondary to 7-day history of cough, generalized malaise, dyspnea exertion, loss of taste and smell, fever: #Sepsis: Secondary to COVID-19 infection. #COVID pneumonia: Patient is on room air. CTA shows bilateral groundglass opacity. No evidence of hypoxia. Inflammatory markers mildly elevated. Procalcitonin normal Recommendations: -Obtain 6-minute walking test if patient becomes hypoxic start start Dexamethasone 6 mg IV/PO daily for 10 days -If further hypoxia and then start Remdesivir total 5 days -Monitor inflammatory markers - ferritin, Ddimer, CRP, LDH -Stop ceftriaxone and azithromycin, procalcitonin <0.25 ng/mL -Continue anticoagulation per System Protocol -Prone positioning as possible All laboratory, cultures and imaging were reviewed. Will follow Sasha Contreras MD Infectious Diseases [employer] [facility] ([facility] M [phone] O [phone]
[2020-09-24] MEDS: HEPARIN 5,000 UNIT/1 ML VIAL SUB-Q SCH ×4 (16:37→22:39)
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
[2020-09-24] MEDS: oxyCODONE /ACETAMINOPHEN 5-325MG TAB PO PRN (19:31)
[2020-09-24] MEDS: BENZONATATE 100 MG CAP PO SCH ×2 (19:55→22:15)
[2020-09-24] MEDS: LORazepam 2 MG TAB PO PRN (22:15)
[2020-09-25] MEDS ORDERED: cefTRIAXone/NS 1 GM/50 ML 1 GM/50 ML BAG IV SCH (04:00)
[2020-09-25 05:53] LABS: Basophils % (Auto) 0.1 % (0.0-1.8); Eosinophils % (Auto) 0.1 % (0.0-4.3); Hematocrit 34.2 % (35.5-45.6); Hemoglobin 12.1 gm/dl (11.8-15.2); Lymphocytes # (Auto) 1.2 K/mm3 (1.2-5.4); Mean Corpuscular HGB Conc 36 % (32-34); Mean Corpuscular Volume 96 fl (84-94); Monocytes # (Auto) 0.8 K/mm3 (0.0-0.8); Monocytes % (Auto) 9.8 % (0.0-7.3); Platelet Count 164 K/mm3 (140-440); Red Blood Count 3.57 M/mm3 (3.65-5.03); Red Cell Distribution Width 13.2 % (13.2-15.2)
[2020-09-25 06:01] LABS: BUN/Creatinine Ratio 11; Blood Urea Nitrogen 10 mg/dL (9-20); Calcium 8.9 mg/dL (8.4-10.2); Hemolysis Index 2
[2020-09-25] MEDS: HEPARIN 5,000 UNIT/1 ML VIAL SUB-Q SCH (06:06)
[2020-09-25] MEDS: CHOLECALCIFEROL (VIT D3) 5,000 UNIT TAB PO SCH (09:39)
[2020-09-25] MEDS: BENZONATATE 100 MG CAP PO SCH ×2 (09:39→21:45)
[2020-09-25] MEDS: ASCORBIC ACID 500 MG TAB PO SCH (09:39)
[2020-09-25] MEDS: ZINC SULFATE 220 MG CAP PO SCH (09:39)
[2020-09-25] MEDS: FOLIC ACID 1 MG TAB PO SCH (09:39)
[2020-09-25] MEDS: oxyCODONE /ACETAMINOPHEN 5-325MG TAB PO PRN ×2 (10:19→17:30)
--- NOTE | 2020-09-25 11:04 | Progress Note ---
Assessment and Plan - Patient Problems (1) Acute respiratory failure with hypoxemia Current Visit: Yes Status: Acute (2) Febrile Current Visit: Yes Status: Acute (3) Fever with exposure to COVID-19 virus Current Visit: Yes Status: Acute (4) Pneumonia Current Visit: Yes Status: Acute Qualifiers: Pneumonia type: due to unspecified organism Laterality: bilateral Lung location: lower lobe of lung Qualified Code(s): J18.9 - Pneumonia, unspecified organism (5) Alcohol abuse Current Visit: Yes Status: Chronic (6) Tobacco abuse Current Visit: Yes Status: Chronic Subjective Interval history: still with cough and congestion feels sl better reports cough worse when on rt side Objective Vital Signs - 12hr 09/25/20 09/25/20 05:40 10:19 Temperature 100.2 F H Pulse Rate 95 H Respiratory 20 20 Rate Blood Pressure 120/63 O2 Sat by Pulse 95 Oximetry Constitutional: no acute distress Eyes: non-icteric ENT: oropharynx moist Neck: supple Ascultation: Bilateral: rhonchi Cardiovascular: regular rate and rhythm Gastrointestinal: normoactive bowel sounds, non-tender, non-distended Neurologic: normal mental status Psychiatric: mood appropriate, affect normal CBC and BMP: 09/25/20 04:49 09/25/20 04:49 ABG, PT/INR, D-dimer: PT/INR, D-dimer PT 13.7 Sec. (12.2-14.9) 09/24/20 03:54 INR 1.07 (0.87-1.13) 09/24/20 03:54 D-Dimer 490.64 ng/mlDDU (0-234) H 09/24/20 06:10 Abnormal lab findings: Abnormal Labs 09/24/20 09/24/20 09/24/20 02:40 02:40 03:54 RBC Hct MCV 95 H MCH 34 H MCHC 36 H RDW 13.0 L [place] % (Auto) 9.7 H Lymph # (Auto) 1.0 L Seg Neutrophils % 75.2 H D-Dimer 271.86 H Sodium Chloride Glucose 102 H Ferritin Lactate Dehydrogenase C-Reactive Protein Albumin Coronavirus (PCR) 09/24/20 09/24/20 09/24/20 03:54 06:10 06:10 RBC Hct MCV MCH MCHC RDW [place] % (Auto) Lymph # (Auto) Seg Neutrophils % D-Dimer 490.64 H Sodium Chloride Glucose 111 H Ferritin Lactate Dehydrogenase 366 H C-Reactive Protein 4.10 H Albumin 3.7 L Coronavirus (PCR) 09/24/20 09/24/20 09/24/20 06:10 08:26 08:26 RBC Hct MCV MCH MCHC RDW [place] % (Auto) Lymph # (Auto) Seg Neutrophils % D-Dimer Sodium Chloride Glucose Ferritin 565.5 H 482.2 H Lactate Dehydrogenase 330 H C-Reactive Protein 3.80 H Albumin Coronavirus (PCR) 09/24/20 09/25/20 09/25/20 Unknown 04:49 04:49 RBC 3.57 L Hct 34.2 L MCV 96 H MCH 34 H MCHC 36 H RDW [place] % (Auto) 9.8 H Lymph # (Auto) Seg Neutrophils % 75.0 H D-Dimer Sodium 134 L Chloride 96.9 L Glucose Ferritin Lactate Dehydrogenase C-Reactive Protein Albumin Coronavirus (PCR) Positive A Chest x-ray: report reviewed, image reviewed CT scan - chest: report reviewed, image reviewed
--- NOTE | 2020-09-25 12:02 | Progress Note ---
Assessment and Plan Assessment and plan: This is a 45-year-old male who has depression, anxiety, bipolar, tobacco abuse (half a pack per day since he was a teenager) who presented to the emergency department with a 5-8 day history of shortness of breath, dyspnea and dry cough, loss of taste/smell for 3 days (patient has recovered) and one episode of fever (100.5). Patient is from [facility] and he says he was admitted for depression however he told the emergency department physician that he was admitted for alcohol rehab. Patient denies any alcohol use at the time of examination. Patient denies any chest pain, chills, hemoptysis, excessive fatigue, or recent weight loss. Patient does endorse a dry cough, fever, recent sick contacts and COVID-19 exposure from skilled nursing. In the emergency department patient was started on a azithromycin, ceftriaxone, received 2 L IV fluid, chest CTA for elevated D-dimer which revealed no pulmonary embolism and a chest x-ray which showed mild bilateral interstitial prominence measuring reflect edema or atypical infection. His inflammatory markers are elevated however he is procalcitonin is less than 0.05. Patient will be admitted to the hospitalist group as a COVID-19 PUI, infectious disease, pulmonology and mental health have been consulted. No home medications to reconcile however RN instructed to update as soon as possible, advanced care planning conducted in the emergency department and no prior visits to review. Patient denies any suicidal homicidal ideations at the time of my exam. 09/25: At this point considering patient's hypoxia we will continue remdesivir and dexamethasone as recommended by ID Patient refused heparin subcu will change to Eliquis p.o. per HIS request (1) Acute respiratory failure with hypoxemia Current Visit: Yes Status: Acute (2) sepsis secondary to COVID-19 pneumonia Current Visit: Yes Status: Acute (3) COVID-19 Current Visit: Yes Status: Acute (4) Pneumonia Current Visit: Yes Status: Acute Qualifiers: Pneumonia type: due to unspecified organism Laterality: bilateral Lung location: lower lobe of lung Qualified Code(s): J18.9 - Pneumonia, unspecified organism (5) Alcohol abuse Current Visit: Yes Status: Chronic (6) Tobacco abuse Current Visit: Yes Status: Chronic History Interval history: Patient seen and examined resting comfortably reports headache is improved shortness of breath is gradually improving. Still reports cough states that is worse with lying proNE Hospitalist Physical - Physical exam Narrative exam: VITAL SIGNS: Reviewed. GENERAL: The patient appears normally developed, Vital signs as documented. HEAD: No signs of head trauma. EYES: Pupils are equal. Extraocular motions intact. EARS: Hearing grossly intact. MOUTH: Oropharynx is normal. NECK: No adenopathy, no JVD. CHEST: Chest with clear breath sounds bilaterally. No wheezes, rales, or rhonchi. CARDIAC: Regular rate and rhythm. S1 and S2, without murmurs, gallops, or rubs. VASCULAR: No Edema. Peripheral pulses normal and equal in all extremities. ABDOMEN: Soft, non tender and non distended. No rebound or guarding, and no masses palpated. Bowel Sounds normal. MUSCULOSKELETAL: Good range of motion of all major joints. Extremities without clubbing, cyanosis or edema. NEUROLOGIC EXAM: Alert and oriented x 3 No focal sensory or strength deficits. Speech normal. Follows commands. PSYCHIATRIC: Mood normal. SKIN: Multiple skin tattoos, detail exam as documented in skin assessment - Constitutional Vitals: Temp Pulse Resp BP Pulse Ox 100.2 F H 95 H 20 120/63 95 09/25/20 05:40 09/25/20 05:40 09/25/20 10:19 09/25/20 05:40 09/25/20 05:40 General appearance: Present: no acute distress Results - Labs CBC & Chem 7: 09/25/20 04:49 09/25/20 04:49 Labs: Laboratory Last Values WBC 8.1 K/mm3 (4.5-11.0) 09/25/20 04:49 RBC 3.57 M/mm3 (3.65-5.03) L 09/25/20 04:49 Hgb 12.1 gm/dl (11.8-15.2) 09/25/20 04:49 Hct 34.2 % (35.5-45.6) L 09/25/20 04:49 MCV 96 fl (84-94) H 09/25/20 04:49 MCH 34 pg (28-32) H 09/25/20 04:49 MCHC 36 % (32-34) H 09/25/20 04:49 RDW 13.2 % (13.2-15.2) 09/25/20 04:49 Plt Count 164 K/mm3 (140-440) 09/25/20 04:49 Lymph % (Auto) 15.0 % (13.4-35.0) 09/25/20 04:49 [place] % (Auto) 9.8 % (0.0-7.3) H 09/25/20 04:49 Eos % (Auto) 0.1 % (0.0-4.3) 09/25/20 04:49 Baso % (Auto) 0.1 % (0.0-1.8) 09/25/20 04:49 Lymph # (Auto) 1.2 K/mm3 (1.2-5.4) 09/25/20 04:49 [place] # (Auto) 0.8 K/mm3 (0.0-0.8) 09/25/20 04:49 Eos # (Auto) 0.0 K/mm3 (0.0-0.4) 09/25/20 04:49 Baso # (Auto) 0.0 K/mm3 (0.0-0.1) 09/25/20 04:49 Seg Neutrophils % 75.0 % (40.0-70.0) H 09/25/20 04:49 Seg Neutrophils # 6.1 K/mm3 (1.8-7.7) 09/25/20 04:49 PT 13.7 Sec. (12.2-14.9) 09/24/20 03:54 INR 1.07 (0.87-1.13) 09/24/20 03:54 APTT 31.4 Sec. (24.2-36.6) 09/24/20 03:54 D-Dimer 490.64 ng/mlDDU (0-234) H 09/24/20 06:10 Sodium 134 mmol/L (137-145) L 09/25/20 04:49 Potassium 3.7 mmol/L (3.6-5.0) 09/25/20 04:49 Chloride 96.9 mmol/L (98-107) L 09/25/20 04:49 Carbon Dioxide 23 mmol/L (22-30) 09/25/20 04:49 Anion Gap 18 mmol/L 09/25/20 04:49 BUN 10 mg/dL (9-20) 09/25/20 04:49 Creatinine 0.9 mg/dL (0.8-1.3) 09/25/20 04:49 Estimated GFR > 60 ml/min 09/25/20 04:49 BUN/Creatinine Ratio 11 % 09/25/20 04:49 Glucose 97 mg/dL (75-100) 09/25/20 04:49 Lactic Acid 1.70 mmol/L (0.7-2.0) 09/24/20 03:54 Calcium 8.9 mg/dL (8.4-10.2) 09/25/20 04:49 Phosphorus 3.00 mg/dL (2.5-4.5) 09/24/20 08:26 Magnesium 1.90 mg/dL (1.7-2.3) 09/24/20 08:26 Ferritin 482.2 ng/mL (30.0-300.0) H 09/24/20 08:26 Total Bilirubin 0.40 mg/dL (0.1-1.2) 09/24/20 03:54 Direct Bilirubin < 0.2 mg/dL (0-0.2) 09/24/20 03:54 Indirect Bilirubin 0.2 mg/dL 09/24/20 03:54 AST 32 units/L (5-40) 09/24/20 03:54 ALT 26 units/L (7-56) 09/24/20 03:54 Alkaline Phosphatase 50 units/L (35-129) 09/24/20 03:54 Lactate Dehydrogenase 330 units/L (91-180) H 09/24/20 08:26 C-Reactive Protein 3.80 mg/dL (0.00-1.30) H 09/24/20 08:26 Total Protein 6.9 g/dL (6.3-8.2) 09/24/20 03:54 Albumin 3.7 g/dL (3.9-5) L 09/24/20 03:54 Albumin/Globulin Ratio 1.2 % 09/24/20 03:54 Procalcitonin < 0.05 ng/mL (<0.15) 09/24/20 06:10 Coronavirus (PCR) Positive (Negative) A 09/24/20 Unknown Microbiology: Microbiology 09/24/20 03:54 Peripheral/Venous Blood Culture - Preliminary NO GROWTH AFTER 24 HOURS 09/24/20 04:28 Peripheral/Venous Blood Culture - Preliminary NO GROWTH AFTER 24 HOURS Rosas/IV: Voiding Method Toilet Active Medications - Current Medications Current Medications: Generic Name Dose Route Start Last Admin Trade Name Freq PRN Reason Stop Dose Admin Acetaminophen 650 mg 09/24/20 08:30 Acetaminophen 325 Mg Tab PO Q4H PRN Pain MILD(1-3)/Fever >100.5/[place] Apixaban 2.5 mg 09/25/20 22:00 Apixaban 2.5 Mg Tab PO Q12HR [facility] Protocol Ascorbic Acid 500 mg 09/24/20 10:00 09/25/20 09:39 Ascorbic Acid 500 Mg Tab PO 500 mg QDAY KENDRA Administration Benzonatate 100 mg 09/24/20 19:35 09/25/20 09:39 Benzonatate 100 Mg Cap PO 100 mg BID KENDRA Administration Cholecalciferol 5,000 unit 09/24/20 10:00 09/25/20 09:39 Cholecalciferol (Vit D3) 5,000 Unit Tab PO 5,000 unit DAILY [facility] Administration Dexamethasone 6 mg 09/25/20 12:00 Dexamethasone 4 Mg Tab PO 10/05/20 11:59 DAILY KENDRA Folic Acid 1 mg 09/24/20 10:00 09/25/20 09:39 Folic Acid 1 Mg Tab PO 1 mg QDAY KENDRA Administration Lorazepam 2 mg 09/24/20 09:00 09/24/20 22:15 Lorazepam 2 Mg Tab PO 2 mg Q1HR PRN Administration HERI-Elder 8-15 Ondansetron HCl 4 mg 09/24/20 09:00 Ondansetron 4 Mg/2 Ml Inj IV Q8H PRN Nausea And Vomiting Oxycodone/Acetaminophen 1 tab 09/24/20 08:30 09/25/20 10:19 Oxycodone /Acetaminophen 5-325mg Tab PO 1 tab Q6H PRN Administration Pain, Moderate (4-6) Sodium Chloride 10 ml 09/24/20 10:00 09/25/20 09:39 Sodium Chloride 0.9% 10 Ml Flush Syringe IV 10 ml BID KENDRA Administration Sodium Chloride 10 ml 09/24/20 09:00 Sodium Chloride 0.9% 10 Ml Flush Syringe IV PRN PRN LINE FLUSH Zinc Sulfate 220 mg 09/24/20 10:00 09/25/20 09:39 Zinc Sulfate 220 Mg Cap PO 220 mg QDAY KENDRA Administration
[2020-09-25] MEDS: DEXAMETHASONE 4 MG TAB PO SCH (17:21)
[2020-09-25] MEDS: guaiFENesin DM 200/20 MG ORAL LIQD 10 ML PO PRN (17:21)
[2020-09-25] MEDS: APIXABAN 2.5 MG TAB PO SCH (21:45)
[2020-09-26] MEDS: guaiFENesin DM 200/20 MG ORAL LIQD 10 ML PO PRN ×2 (03:26→16:45)
[2020-09-26] MEDS: oxyCODONE /ACETAMINOPHEN 5-325MG TAB PO PRN ×4 (03:26→21:25)
[2020-09-26] MEDS: APIXABAN 2.5 MG TAB PO SCH ×2 (09:00→21:25)
[2020-09-26] MEDS: FOLIC ACID 1 MG TAB PO SCH (09:00)
[2020-09-26] MEDS: CHOLECALCIFEROL (VIT D3) 5,000 UNIT TAB PO SCH (09:00)
[2020-09-26] MEDS: DEXAMETHASONE 4 MG TAB PO SCH (09:00)
[2020-09-26] MEDS: ZINC SULFATE 220 MG CAP PO SCH (09:00)
[2020-09-26] MEDS: ASCORBIC ACID 500 MG TAB PO SCH (09:00)
[2020-09-26] MEDS: BENZONATATE 100 MG CAP PO SCH ×2 (09:01→21:25)
--- NOTE | 2020-09-26 12:12 | Progress Note ---
Assessment and Plan Assessment and plan: This is a 45-year-old male who has depression, anxiety, bipolar, tobacco abuse (half a pack per day since he was a teenager) who presented to the emergency department with a 5-8 day history of shortness of breath, dyspnea and dry cough, loss of taste/smell for 3 days (patient has recovered) and one episode of fever (100.5). Patient is from [facility] and he says he was admitted for depression however he told the emergency department physician that he was admitted for alcohol rehab. Patient denies any alcohol use at the time of examination. Patient denies any chest pain, chills, hemoptysis, excessive fatigue, or recent weight loss. Patient does endorse a dry cough, fever, recent sick contacts and COVID-19 exposure from prison. In the emergency department patient was started on a azithromycin, ceftriaxone, received 2 L IV fluid, chest CTA for elevated D-dimer which revealed no pulmonary embolism and a chest x-ray which showed mild bilateral interstitial prominence measuring reflect edema or atypical infection. His inflammatory markers are elevated however he is procalcitonin is less than 0.05. Patient will be admitted to the hospitalist group as a COVID-19 PUI, infectious disease, pulmonology and mental health have been consulted. No home medications to reconcile however RN instructed to update as soon as possible, advanced care planning conducted in the emergency department and no prior visits to review. Patient denies any suicidal homicidal ideations at the time of my exam. 09/25: At this point considering patient's hypoxia we will continue remdesivir and dexamethasone as recommended by ID Patient refused heparin subcu will change to Eliquis p.o. per HIS request 09/26: Discussed with nursing staff Home medication reconciled. Also discussed with nursing staff to obtain ambulatory sats on room air. Continue to monitor fever. Wean oxygen as tolerated. Other management for COVID-19 per ID. Patient currently only on dexamethasone. Will defer remdesivir to ID per hospital policy (1) Acute respiratory failure with hypoxemia Current Visit: Yes Status: Acute (2) sepsis secondary to COVID-19 pneumonia Current Visit: Yes Status: Acute (3) COVID-19 Current Visit: Yes Status: Acute (4) Pneumonia Current Visit: Yes Status: Acute Qualifiers: Pneumonia type: due to unspecified organism Laterality: bilateral Lung location: lower lobe of lung Qualified Code(s): J18.9 - Pneumonia, unspecified organism (5) Alcohol abuse Current Visit: Yes Status: Chronic (6) Tobacco abuse Current Visit: Yes Status: Chronic History Interval history: Patient seen and examined resting comfortably encouraged to wear his oxygen. Still hypoxic and short of breath on exertion still with intermittent fever Hospitalist Physical - Physical exam Narrative exam: VITAL SIGNS: Reviewed. GENERAL: The patient appears normally developed, Vital signs as documented. HEAD: No signs of head trauma. EYES: Pupils are equal. Extraocular motions intact. EARS: Hearing grossly intact. MOUTH: Oropharynx is normal. NECK: No adenopathy, no JVD. CHEST: Chest with clear breath sounds bilaterally. No wheezes, rales, or rhonchi. CARDIAC: Regular rate and rhythm. S1 and S2, without murmurs, gallops, or rubs. VASCULAR: No Edema. Peripheral pulses normal and equal in all extremities. ABDOMEN: Soft, non tender and non distended. No rebound or guarding, and no masses palpated. Bowel Sounds normal. MUSCULOSKELETAL: Good range of motion of all major joints. Extremities without clubbing, cyanosis or edema. NEUROLOGIC EXAM: Alert and oriented x 3 No focal sensory or strength deficits. Speech normal. Follows commands. PSYCHIATRIC: Mood normal. SKIN: Multiple skin tattoos, detail exam as documented in skin assessment - Constitutional Vitals: Temp Pulse Resp BP Pulse Ox 98.7 F 77 20 101/69 93 09/26/20 04:46 09/26/20 04:46 09/26/20 08:56 09/26/20 04:46 09/26/20 09:27 General appearance: Present: no acute distress Results - Labs CBC & Chem 7: 09/25/20 04:49 09/25/20 04:49 Labs: Laboratory Last Values WBC 8.1 K/mm3 (4.5-11.0) 09/25/20 04:49 RBC 3.57 M/mm3 (3.65-5.03) L 09/25/20 04:49 Hgb 12.1 gm/dl (11.8-15.2) 09/25/20 04:49 Hct 34.2 % (35.5-45.6) L 09/25/20 04:49 MCV 96 fl (84-94) H 09/25/20 04:49 MCH 34 pg (28-32) H 09/25/20 04:49 MCHC 36 % (32-34) H 09/25/20 04:49 RDW 13.2 % (13.2-15.2) 09/25/20 04:49 Plt Count 164 K/mm3 (140-440) 09/25/20 04:49 Lymph % (Auto) 15.0 % (13.4-35.0) 09/25/20 04:49 Williams % (Auto) 9.8 % (0.0-7.3) H 09/25/20 04:49 Eos % (Auto) 0.1 % (0.0-4.3) 09/25/20 04:49 Baso % (Auto) 0.1 % (0.0-1.8) 09/25/20 04:49 Lymph # (Auto) 1.2 K/mm3 (1.2-5.4) 09/25/20 04:49 Williams # (Auto) 0.8 K/mm3 (0.0-0.8) 09/25/20 04:49 Eos # (Auto) 0.0 K/mm3 (0.0-0.4) 09/25/20 04:49 Baso # (Auto) 0.0 K/mm3 (0.0-0.1) 09/25/20 04:49 Seg Neutrophils % 75.0 % (40.0-70.0) H 09/25/20 04:49 Seg Neutrophils # 6.1 K/mm3 (1.8-7.7) 09/25/20 04:49 PT 13.7 Sec. (12.2-14.9) 09/24/20 03:54 INR 1.07 (0.87-1.13) 09/24/20 03:54 APTT 31.4 Sec. (24.2-36.6) 09/24/20 03:54 D-Dimer 490.64 ng/mlDDU (0-234) H 09/24/20 06:10 Sodium 134 mmol/L (137-145) L 09/25/20 04:49 Potassium 3.7 mmol/L (3.6-5.0) 09/25/20 04:49 Chloride 96.9 mmol/L (98-107) L 09/25/20 04:49 Carbon Dioxide 23 mmol/L (22-30) 09/25/20 04:49 Anion Gap 18 mmol/L 09/25/20 04:49 BUN 10 mg/dL (9-20) 09/25/20 04:49 Creatinine 0.9 mg/dL (0.8-1.3) 09/25/20 04:49 Estimated GFR > 60 ml/min 09/25/20 04:49 BUN/Creatinine Ratio 11 % 09/25/20 04:49 Glucose 97 mg/dL (75-100) 09/25/20 04:49 Lactic Acid 1.70 mmol/L (0.7-2.0) 09/24/20 03:54 Calcium 8.9 mg/dL (8.4-10.2) 09/25/20 04:49 Phosphorus 3.00 mg/dL (2.5-4.5) 09/24/20 08:26 Magnesium 1.90 mg/dL (1.7-2.3) 09/24/20 08:26 Ferritin 482.2 ng/mL (30.0-300.0) H 09/24/20 08:26 Total Bilirubin 0.40 mg/dL (0.1-1.2) 09/24/20 03:54 Direct Bilirubin < 0.2 mg/dL (0-0.2) 09/24/20 03:54 Indirect Bilirubin 0.2 mg/dL 09/24/20 03:54 AST 32 units/L (5-40) 09/24/20 03:54 ALT 26 units/L (7-56) 09/24/20 03:54 Alkaline Phosphatase 50 units/L (35-129) 09/24/20 03:54 Lactate Dehydrogenase 330 units/L (91-180) H 09/24/20 08:26 C-Reactive Protein 3.80 mg/dL (0.00-1.30) H 09/24/20 08:26 Total Protein 6.9 g/dL (6.3-8.2) 09/24/20 03:54 Albumin 3.7 g/dL (3.9-5) L 09/24/20 03:54 Albumin/Globulin Ratio 1.2 % 09/24/20 03:54 Procalcitonin < 0.05 ng/mL (<0.15) 09/24/20 06:10 Coronavirus (PCR) Positive (Negative) A 09/24/20 Unknown Microbiology: Microbiology 09/24/20 03:54 Peripheral/Venous Blood Culture - Preliminary NO GROWTH AFTER 48 HOURS 09/24/20 04:28 Peripheral/Venous Blood Culture - Preliminary NO GROWTH AFTER 48 HOURS Rosas/IV: Voiding Method Toilet IV Catheter Type [Right Hand] INT / Saline Lock Active Medications - Current Medications Current Medications: Generic Name Dose Route Start Last Admin Trade Name Freq PRN Reason Stop Dose Admin Acetaminophen 650 mg 09/24/20 08:30 09/25/20 21:52 Acetaminophen 325 Mg Tab PO 650 mg Q4H PRN Administration Pain MILD(1-3)/Fever >100.5/[place] Apixaban 2.5 mg 09/25/20 22:00 09/26/20 09:00 Apixaban 2.5 Mg Tab PO 2.5 mg Q12HR KENDRA Administration Protocol Ascorbic Acid 500 mg 09/24/20 10:00 09/26/20 09:00 Ascorbic Acid 500 Mg Tab PO 500 mg QDAY KENDRA Administration Benzonatate 100 mg 09/24/20 19:35 09/26/20 09:01 Benzonatate 100 Mg Cap PO 100 mg BID KENDRA Administration Cholecalciferol 5,000 unit 09/24/20 10:00 09/26/20 09:00 Cholecalciferol (Vit D3) 5,000 Unit Tab PO 5,000 unit DAILY KENDRA Administration Dexamethasone 6 mg 09/25/20 12:00 09/26/20 09:00 Dexamethasone 4 Mg Tab PO 10/05/20 11:59 6 mg DAILY KENDRA Administration Folic Acid 1 mg 09/24/20 10:00 09/26/20 09:00 Folic Acid 1 Mg Tab PO 1 mg QDAY KENDRA Administration Guaifenesin 10 ml 09/25/20 12:02 09/26/20 03:26 Guaifenesin Dm 200/20 Mg Oral Liqd 10 Ml PO 10 ml Q6HR PRN Administration Cough Lorazepam 2 mg 09/24/20 09:00 09/24/20 22:15 Lorazepam 2 Mg Tab PO 2 mg Q1HR PRN Administration CIWA-Ar 8-15 Ondansetron HCl 4 mg 09/24/20 09:00 Ondansetron 4 Mg/2 Ml Inj IV Q8H PRN Nausea And Vomiting Oxycodone/Acetaminophen 1 tab 09/24/20 08:30 09/26/20 08:56 Oxycodone /Acetaminophen 5-325mg Tab PO 1 tab Q6H PRN Administration Pain, Moderate (4-6) Sodium Chloride 10 ml 09/24/20 10:00 09/26/20 09:05 Sodium Chloride 0.9% 10 Ml Flush Syringe IV 10 ml BID KENDRA Administration Sodium Chloride 10 ml 09/24/20 09:00 Sodium Chloride 0.9% 10 Ml Flush Syringe IV PRN PRN LINE FLUSH Zinc Sulfate 220 mg 09/24/20 10:00 09/26/20 09:00 Zinc Sulfate 220 Mg Cap PO 220 mg QDAY KENDRA Administration
--- NOTE | 2020-09-26 12:39 | Progress Note ---
Assessment and Plan - Patient Problems (1) Acute respiratory failure with hypoxemia Current Visit: Yes Status: Acute (2) Febrile Current Visit: Yes Status: Acute (3) Fever with exposure to COVID-19 virus Current Visit: Yes Status: Acute (4) Pneumonia Current Visit: Yes Status: Acute Qualifiers: Pneumonia type: due to unspecified organism Laterality: bilateral Lung location: lower lobe of lung Qualified Code(s): J18.9 - Pneumonia, unspecified organism (5) Alcohol abuse Current Visit: Yes Status: Chronic (6) Tobacco abuse Current Visit: Yes Status: Chronic Subjective Interval history: still cough Objective Vital Signs - 12hr 09/26/20 09/26/20 09/26/20 04:46 08:56 09:27 Temperature 98.7 F Pulse Rate 77 Respiratory 19 20 Rate Blood Pressure 101/69 O2 Sat by Pulse 95 93 Oximetry Constitutional: no acute distress Eyes: non-icteric ENT: oropharynx moist Neck: supple Ascultation: Bilateral: rhonchi Cardiovascular: regular rate and rhythm Gastrointestinal: normoactive bowel sounds, non-tender, non-distended Neurologic: normal mental status Psychiatric: mood appropriate, affect normal CBC and BMP: 09/25/20 04:49 09/25/20 04:49 ABG, PT/INR, D-dimer: PT/INR, D-dimer PT 13.7 Sec. (12.2-14.9) 09/24/20 03:54 INR 1.07 (0.87-1.13) 09/24/20 03:54 D-Dimer 490.64 ng/mlDDU (0-234) H 09/24/20 06:10 Abnormal lab findings: Abnormal Labs 09/24/20 09/24/20 09/24/20 02:40 02:40 03:54 RBC Hct MCV 95 H MCH 34 H MCHC 36 H RDW 13.0 L Teller % (Auto) 9.7 H Lymph # (Auto) 1.0 L Seg Neutrophils % 75.2 H D-Dimer 271.86 H Sodium Chloride Glucose 102 H Ferritin Lactate Dehydrogenase C-Reactive Protein Albumin Coronavirus (PCR) 09/24/20 09/24/20 09/24/20 03:54 06:10 06:10 RBC Hct MCV MCH MCHC RDW Teller % (Auto) Lymph # (Auto) Seg Neutrophils % D-Dimer 490.64 H Sodium Chloride Glucose 111 H Ferritin Lactate Dehydrogenase 366 H C-Reactive Protein 4.10 H Albumin 3.7 L Coronavirus (PCR) 09/24/20 09/24/20 09/24/20 06:10 08:26 08:26 RBC Hct MCV MCH MCHC RDW Teller % (Auto) Lymph # (Auto) Seg Neutrophils % D-Dimer Sodium Chloride Glucose Ferritin 565.5 H 482.2 H Lactate Dehydrogenase 330 H C-Reactive Protein 3.80 H Albumin Coronavirus (PCR) 09/24/20 09/25/20 09/25/20 Unknown 04:49 04:49 RBC 3.57 L Hct 34.2 L MCV 96 H MCH 34 H MCHC 36 H RDW Teller % (Auto) 9.8 H Lymph # (Auto) Seg Neutrophils % 75.0 H D-Dimer Sodium 134 L Chloride 96.9 L Glucose Ferritin Lactate Dehydrogenase C-Reactive Protein Albumin Coronavirus (PCR) Positive A
[2020-09-26] MEDS: LORazepam 2 MG TAB PO PRN (21:43)
[2020-09-27] MEDS ORDERED: ZOLPIDEM 5 MG TAB PO PRN (02:36)
[2020-09-27] MEDS: guaiFENesin DM 200/20 MG ORAL LIQD 10 ML PO PRN ×2 (05:57→09:25)
[2020-09-27] MEDS: LORazepam 2 MG TAB PO PRN (05:57)
[2020-09-27] MEDS ORDERED: DIVALPROEX ER 250 MG TAB PO SCH (08:00)
[2020-09-27] MEDS ORDERED: PROPRANOLOL 10 MG TAB PO SCH (08:00)
--- NOTE | 2020-09-27 09:02 | Progress Note ---
Assessment and Plan Cultures: Blood culture pending SARS CoV2 PCR positive Assessment: 45 years old male with history of depression, anxiety, bipolar disorder, tobacco abuse, admitted on 09/24/2020 secondary to 7-day history of cough, generalized malaise, dyspnea exertion, loss of taste and smell, fever: #Sepsis: Secondary to COVID-19 infection. #Severe COVID pneumonia: CTA shows bilateral groundglass opacity. No evidence of hypoxia. Inflammatory markers mildly elevated. Procalcitonin normal #Acute hypoxemic respiratory failure: Patient on 3 L. #Obesity Recommendations: -Continue Dexamethasone 6 mg IV/PO daily for 10 days -Start Remdesivir total 5 days -Check SARS Covid 2 IgG -Monitor inflammatory markers - ferritin, Ddimer, CRP, LDH -ordered today -Continue anticoagulation per System Protocol -Prone positioning as possible -Pulmonary on board All laboratory, cultures and imaging were reviewed. Will follow Sasha Contreras MD Infectious Diseases [employer] [facility] ([facility]) M [phone] O [phone] Subjective Date of service: 09/27/20 Principal diagnosis: COVID-19 Interval history: Patient was on 3 L nasal cannula currently on 2 L no fever Objective - Exam Narrative Exam: Physical Exam: reviewed ED and hospitalist notes. Deferred to prevent COVID-19 transmission. - Constitutional Vitals: Vital Signs Temp Pulse Resp BP Pulse Ox 98.3 F 59 L 18 109/59 92 09/27/20 04:24 09/27/20 04:24 09/27/20 04:24 09/27/20 04:24 09/27/20 04:24 Temperature -Last 24 Hours Temperature 98.3 F Temperature 98.8 F Temperature 98.8 F - Labs CBC & Chem 7: 09/25/20 04:49 09/25/20 04:49
[2020-09-27] MEDS: DEXAMETHASONE 4 MG TAB PO SCH (09:26)
[2020-09-27] MEDS: ZINC SULFATE 220 MG CAP PO SCH (09:26)
[2020-09-27] MEDS: CHOLECALCIFEROL (VIT D3) 5,000 UNIT TAB PO SCH (09:26)
[2020-09-27] MEDS: FOLIC ACID 1 MG TAB PO SCH (09:26)
[2020-09-27] MEDS: APIXABAN 2.5 MG TAB PO SCH (09:27)
[2020-09-27] MEDS: oxyCODONE /ACETAMINOPHEN 5-325MG TAB PO PRN (09:27)
[2020-09-27] MEDS: ASCORBIC ACID 500 MG TAB PO SCH (09:27)
[2020-09-27] MEDS: BENZONATATE 100 MG CAP PO SCH (09:28)
[2020-09-27] MEDS ORDERED: busPIRone 5 MG TAB PO SCH (10:00)
[2020-09-27] MEDS ORDERED: CITALOPRAM 20 MG TAB PO SCH (10:00)
[2020-09-27] MEDS ORDERED: QUEtiapine 200 MG TAB PO SCH (10:00)
[2020-09-27] MEDS ORDERED: clonazePAM 0.5 MG TAB PO SCH (10:00)
[2020-09-27] MEDS ORDERED: busPIRone 10 MG TAB PO SCH (10:00)
[2020-09-27] MEDS ORDERED: REMDESIVIR 200 MG in SODIUM CHLORIDE 0.9% 250ML 250 ML IV ONE ×2 (11:00→13:00)
--- NOTE | 2020-09-27 11:10 | Progress Note ---
Assessment and Plan 45 y/o male with abnormal CT, Fever and cough, concern for COVID 19 1. Prone as tolerated during the day and at night. 2. Continue steroids daily, will need 10 days total 3. Remdesivir if a candidate 4. Would suggest stopping IVF's unless patient is not taking adequate PO 5. Check Covid ab to see if there are positive. If negative ask about plasma although respiratory status appears to be doing well. Subjective Date of service: 09/27/20 Principal diagnosis: COVID-19 Interval history: No acute events. On 2 liters NC with no distress. Objective Vital Signs - 12hr 09/27/20 09/27/20 04:24 09:00 Temperature 98.3 F Pulse Rate 59 L Respiratory 18 Rate Blood Pressure 109/59 O2 Sat by Pulse 92 94 Oximetry Constitutional: no acute distress Eyes: non-icteric ENT: oropharynx moist Neck: supple Ascultation: Bilateral: rhonchi Cardiovascular: regular rate and rhythm Gastrointestinal: normoactive bowel sounds, non-tender, non-distended Neurologic: normal mental status Psychiatric: mood appropriate, affect normal CBC and BMP: 09/25/20 04:49 09/25/20 04:49 ABG, PT/INR, D-dimer: PT/INR, D-dimer PT 13.7 Sec. (12.2-14.9) 09/24/20 03:54 INR 1.07 (0.87-1.13) 09/24/20 03:54 D-Dimer 490.64 ng/mlDDU (0-234) H 09/24/20 06:10 Abnormal lab findings: Abnormal Labs 09/24/20 09/24/20 09/24/20 02:40 02:40 03:54 RBC Hct MCV 95 H MCH 34 H MCHC 36 H RDW 13.0 L [place] % (Auto) 9.7 H Lymph # (Auto) 1.0 L Seg Neutrophils % 75.2 H D-Dimer 271.86 H Sodium Chloride Glucose 102 H Ferritin Lactate Dehydrogenase C-Reactive Protein Albumin Coronavirus (PCR) 09/24/20 09/24/20 09/24/20 03:54 06:10 06:10 RBC Hct MCV MCH MCHC RDW [place] % (Auto) Lymph # (Auto) Seg Neutrophils % D-Dimer 490.64 H Sodium Chloride Glucose 111 H Ferritin Lactate Dehydrogenase 366 H C-Reactive Protein 4.10 H Albumin 3.7 L Coronavirus (PCR) 09/24/20 09/24/20 09/24/20 06:10 08:26 08:26 RBC Hct MCV MCH MCHC RDW [place] % (Auto) Lymph # (Auto) Seg Neutrophils % D-Dimer Sodium Chloride Glucose Ferritin 565.5 H 482.2 H Lactate Dehydrogenase 330 H C-Reactive Protein 3.80 H Albumin Coronavirus (PCR) 09/24/20 09/25/20 09/25/20 Unknown 04:49 04:49 RBC 3.57 L Hct 34.2 L MCV 96 H MCH 34 H MCHC 36 H RDW [place] % (Auto) 9.8 H Lymph # (Auto) Seg Neutrophils % 75.0 H D-Dimer Sodium 134 L Chloride 96.9 L Glucose Ferritin Lactate Dehydrogenase C-Reactive Protein Albumin Coronavirus (PCR) Positive A
[2020-09-27] MEDS ORDERED: SODIUM CHLORIDE 0.9% 50 ML IVPB IV SCH (13:30)
[2020-09-27 14:43] VITALS: BP 103/58
--- NOTE | 2020-09-27 16:31 | Discharge Summary ---
<TARI JADE - Last Filed: 09/28/20 07:58> Providers - Providers Date of Admission: 09/24/20 07:44 Attending physician: MIGUELITO OTT MD 09/24/20 07:44 Consult to Physician [CONS] Routine Comment: Consulting Provider: FADY BEASLEY Physician Instructions: Reason For Exam: covid pui 09/24/20 07:52 Consult to Physician [CONS] Routine Comment: Consulting Provider: GLEN PRECIADO Physician Instructions: Reason For Exam: covid pui 09/24/20 08:29 Consult to Mental Health [CONS] Routine Reason For Exam: depression and anxiety Primary care physician: NUT CHOPPER Hospitalization Condition: Stable Hospital course: This is a 45-year-old male who has depression, anxiety, bipolar, tobacco abuse (half a pack per day since he was a teenager) who presented to the emergency department with a 5-8 day history of shortness of breath, dyspnea and dry cough, loss of taste/smell for 3 days (patient has recovered) and one episode of fever (100.5). Patient is from [facility] and he says he was admitted for depression however he told the emergency department physician that he was admitted for alcohol rehab. Patient denies any alcohol use at the time of examination. Patient denies any chest pain, chills, hemoptysis, excessive fatigue, or recent weight loss. Patient does endorse a dry cough, fever, recent sick contacts and COVID-19 exposure from shelter. In the emergency department patient was started on a azithromycin, ceftriaxone, received 2 L IV fluid, chest CTA for elevated D-dimer which revealed no pulmonary embolism and a chest x-ray which showed mild bilateral interstitial prominence measuring reflect edema or atypical infection. His inflammatory markers are elevated however he is procalcitonin is less than 0.05. Patient will be admitted to the hospitalist group as a COVID-19 PUI, infectious disease, pulmonology and mental health have been consulted. His COVID PCR resulted as positive. He was weaned off oxygen during his stay. Patient was ordered to have remdesiver per ID but he refused treatments and threatened to leave AMA on 09/28. Since his vital signs improved and he does not need supplemental oxygenation at this time, he is being discharged with Eliquis and Dexamethasone. He will need to follow up with his primary care provider and psychiatrist outpatient within 1-2 weeks of discharge. - Patient Problems (1) Person under investigation for COVID-19 Current Visit: Yes Status: Acute Plan to address problem: Patient presented with self-reported cough and fever 09/24 CXR shows mild bilateral interstitial prominence, nonspecific but may reflect edema versus atypical infection. 09/24 CTA chest shows no CT evidence for pulmonary embolism, bilateral peripheral groundglass opacities seen throughout both lungs, worrisome for atypical or viral infection. 09/24 Covid PCR Positive Antibiotic therapy, discontinued due to normal procalcintonin Infectious disease consulted, appreciate recommendations Pulmonology consulted, appreciate recommendations 09/24 vitamin C, vitamin D, zinc started and continue over the counter Will be discharged with Eliquis 2.5 BID (2) Pneumonia Current Visit: Yes Status: Acute Qualifiers: Pneumonia type: due to unspecified organism Laterality: bilateral Lung location: lower lobe of lung Qualified Code(s): J18.9 - Pneumonia, unspecified organism Plan to address problem: 09/24 CXR shows mild bilateral interstitial prominence, nonspecific but may reflect edema versus atypical infection. 09/24 CTA chest shows no CT evidence for pulmonary embolism, bilateral peripheral groundglass opacities seen throughout both lungs, worrisome for atypical or viral infection. Antibiotic therapy, discontinued by ID Pulmonology and ID consult for COVID-19 PUI, appreciate recommendations (3) Febrile Current Visit: Yes Status: resolved Plan to address problem: Patient on presentation was febrile to 102 Antipyretics as needed (4) Elevated d-dimer Current Visit: Yes Status: Acute Plan to address problem: 09/24 D-dimer 271, 490 09/24 CTA chest shows no CT evidence for pulmonary embolism, bilateral peripheral groundglass opacities seen throughout both lungs, worrisome for atypical or viral infection. Discharged on eliquis (5) Depression Current Visit: Yes Status: Chronic Plan to address problem: Continue home medications when available F/U with your psychologist Sleep hygiene (6) Tobacco abuse Current Visit: Yes Status: Chronic Plan to address problem: Tobacco cessation counseling Encourage use of Nicoderm to aid cessation (7) Alcohol abuse Current Visit: Yes Status: Chronic Plan to address problem: Continue vitamin B, folate, thiamine Cessation encouraged Patient denies alcohol abuse however he told the ED physician that he was at [facility] for alcohol detox (8) Anxiety Current Visit: Yes Status: Chronic Plan to address problem: Continue home medications once obtained f/u with neto (9) DVT prophylaxis Current Visit: Yes Status: Acute Plan to address problem: Eliquis PO 2.5mg BID Disposition: DC-01 TO HOME OR SELFCARE Time spent for discharge: 35 Core Measure Documentation - Palliative Care Palliative Care/ Comfort Measures: Not Applicable - Core Measures Any of the following diagnoses?: none Exam - Constitutional Vitals: Temp Pulse Resp BP Pulse Ox 97.6 F 66 18 103/58 95 09/27/20 13:50 09/27/20 14:41 09/27/20 13:50 09/27/20 14:41 09/27/20 13:50 General appearance: Present: no acute distress - EENT Eyes: Present: PERRL, EOM intact ENT: hearing intact, clear oral mucosa - Neck Neck: Present: supple, normal ROM - Respiratory Respiratory effort: normal Respiratory: bilateral: CTA, diminished - Cardiovascular Rhythm: regular Heart Sounds: Present: S1 & S2. Absent: systolic murmur, diastolic murmur - Extremities Extremities: no ischemia, pulses intact, pulses symmetrical, No edema, normal temperature, normal color, Full ROM Peripheral Pulses: within normal limits - Abdominal General gastrointestinal: Present: soft, non-tender, non-distended, normal bowel sounds - Integumentary Integumentary: Present: clear, warm, dry - Musculoskeletal Musculoskeletal: strength equal bilaterally - Psychiatric Psychiatric: cooperative, other (liable) - Neurologic Neurologic: CNII-XII intact, no focal deficits, moves all extremities Plan Activity: advance as tolerated Diet: regular Special Instructions: smoking cessation Additional Instructions: Present to nearest emergency department or contact your PCP if you experience worsening symptoms. Follow-up with your primary care physician within 1 to 2 weeks of discharge. Follow-up with psychiatric services soon as possible. Follow the COVID-19 guidelines set forth by the FDA and contained in the booklet the RN will provide you. Follow up with: PRIMARY CARE, [Primary Care Provider] - 3-5 Days [facility] [Outside] - 7 Days Prescriptions: dexAMETHasone [Decadron] 6 mg PO DAILY #7 tablet Apixaban [Eliquis] 2.5 mg PO Q12HR #14 tablet Folic Acid [Folvite] 1 mg PO QDAY #30 tablet Benzonatate [Tessalon Perles] 100 mg PO BID #20 capsule <MIGUELITO OTT - Last Filed: 09/30/20 07:21> Providers - Providers Date of Admission: 09/24/20 07:44 Attending physician: MIGUELITO OTT MD 09/24/20 07:44 Consult to Physician [CONS] Routine Comment: Consulting Provider: FADY BEASLEY Physician Instructions: Reason For Exam: covid pui 09/24/20 07:52 Consult to Physician [CONS] Routine Comment: Consulting Provider: GLEN PRECIADO Physician Instructions: Reason For Exam: covid pui 09/24/20 08:29 Consult to Mental Health [CONS] Routine Reason For Exam: depression and anxiety Primary care physician: NUT CHOPPER Hospitalization Hospital course: I saw and evaluated the patient. I agree with the findings and the plan of care as documented in the Nurse Practitioner's~note, with the following corrections and additions. Exam - Constitutional Vitals: Temp Pulse Resp BP Pulse Ox 97.6 F 66 18 103/58 95 09/27/20 13:50 09/27/20 14:41 09/27/20 13:50 09/27/20 14:41 09/27/20 13:50
[2020-09-28] MEDS ORDERED: REMDESIVIR 100 MG in SODIUM CHLORIDE 0.9% 250ML 250 ML IV SCH (21:00)
== END 2020-09-27 19:40 | disposition home or self-care (01) | DRG 871 ==
LOC: ED 01:07 → 3A 07:44
PROVIDERS: ADMIT Internal Medicine; ATTEND Internal Medicine
DX: A41.89 Other specified sepsis (principal); U07.1 COVID-19; J96.01 Acute respiratory failure with hypoxia; J12.89 Other viral pneumonia; F41.9 Anxiety disorder, unspecified; E66.9 Obesity, unspecified; F17.210 Nicotine dependence, cigarettes, uncomplicated; F10.10 Alcohol abuse, uncomplicated; F31.9 Bipolar disorder, unspecified; Z83.3 Family history of diabetes mellitus; Z82.49 Family history of ischemic heart disease and other diseases of the circulatory system; Z63.5 Disruption of family by separation and divorce; Z68.37 Body mass index [BMI] 37.0-37.9, adult
CPT/HCPCS: 36415; 71046; 71275; 80048; 80076; 82140; 82728; 82947; 83615; 83735; 84100; 84145; 85025; 85379; 85610; 85730; 86140; 87040; 90471; 94760; 96361; 96365; 96366; 96367; 96368; 96372; 96375; 99406; G0378; J0456; J0696; J1644; J7030; J7050; J8540; Q9967; U0003